=== PATIENT | male | born 1965 ===

== ENCOUNTER 2024-11-24 14:36 | Inpatient (IN) | payer MEDICARE, OTHER ==
[~2024-11-24] VITALS: Ht 167.6 cm; Wt 68.0 kg
[2024-11-24 15:30] LABS: PLATELET COUNT (AUTO) 272 K/uL (152-348); RED BLOOD CELL COUNT(AUTO) 4.18 MIL/uL (4.06-5.63); RED CELL DISTRIBUTION WIDTH 14.7 % (12.1-16.2); WHITE BLOOD COUNT (AUTO) 5.0 K/uL (3.6-10.2)
[2024-11-24 15:41] LABS: CREATININE 0.5 mg/dL (0.6-1.3); SODIUM SERUM 127 mmol/L (136-145); UREA NITROGEN, BLOOD 6 mg/dL (7-18)
[2024-11-24 15:43] LABS: ETHANOL < 3 MG/DL (0-10)
[2024-11-24 15:47] LABS: ASPARTATE AMINOTRANSFERASE 28 U/L (15-37); TOTAL PROTEIN, SERUM 7.2 g/dL (6.4-8.2)
[2024-11-24] MEDS ORDERED: CLON0.1T PO (16:54)
[2024-11-24] MEDS ORDERED: DIVA-78 PO (16:54)
[2024-11-24] MEDS ORDERED: SODI100010 PO (16:54)
[2024-11-24] MEDS ORDERED: MAG HYDROX/AL HYDROX/SIMETH 30 ML LIQUID UDC PO PRN (18:45)
[2024-11-24] MEDS ORDERED: QUETIAPINE FUMARATE 25 MG TABLET PO PRN ×2 (18:45→19:15)
[2024-11-24] MEDS ORDERED: QUETIAPINE FUMARATE 25 MG TABLET PO ONE (18:45)
[2024-11-24] MEDS ORDERED: MAGNESIUM HYDROXIDE 30 ML LIQUID UDC PO PRN (18:45)
[2024-11-24] MEDS ORDERED: ZOLPIDEM 5 MG TABLET PO PRN ×2 (18:45)
[2024-11-24] MEDS: BLOOD SUGAR DIAGNOSTIC 1 EACH STRIP VI ONE (19:33)
[2024-11-24] MEDS: QUETIAPINE FUMARATE 25 MG TABLET PO PRN (20:36)
[2024-11-24] MEDS: ACETAMINOPHEN 325 MG TABLET PO PRN (20:36)
[2024-11-24] MEDS: SODIUM CHLORIDE 1,000 MG TABLET PO SCH (21:15)
[2024-11-25] MEDS ORDERED: HALOPERIDOL 0.5 MG TABLET PO PRN (09:15)
[2024-11-25] MEDS ORDERED: TEMAZEPAM 7.5 MG CAPSULE PO PRN (09:15)
[2024-11-25] MEDS: HALOPERIDOL 2 MG TABLET PO PRN (11:05)
[2024-11-25] MEDS: HALOPERIDOL 2 MG TABLET PO SCH (13:18)
[2024-11-25] MEDS: DIVALPROEX 250 MG TABLET.DR PO SCH (13:18)
[2024-11-26 07:30] VITALS: BP 112/78; TEMP 98; O2SAT 99
[2024-11-26] MEDS: OLANZAPINE 10 MG VIAL IM ONE (10:49)
[2024-11-26] MEDS ORDERED: HALOPERIDOL 2 MG TABLET PO SCH (14:00)
[2024-11-26] MEDS: HALOPERIDOL 5 MG TABLET PO SCH (14:23)
[2024-11-28] MEDS: LORAZEPAM 1 MG TABLET PO ONE (13:15)
[2024-11-28] MEDS: HALOPERIDOL LACTATE 5 MG/1 ML VIAL IM ONE (13:21)
[2024-11-28] MEDS ORDERED: HALOPERIDOL LACTATE 5 MG/1 ML VIAL IM ONE (13:30)
[2024-11-28] MEDS: METOPROLOL TARTRATE 25 MG TABLET PO SCH (21:00)
[2024-11-29] MEDS: OLANZAPINE 10 MG VIAL IM STA (08:08)
[2024-11-29] MEDS: HALOPERIDOL 5 MG TABLET PO SCH (14:21)
[2024-11-30] MEDS: OLANZAPINE 10 MG VIAL IM STA (09:01)
[2024-11-30] MEDS: diphenhydrAMINE 50 MG/1 ML VIAL IM STA (09:01)
[2024-11-30] MEDS: HALOPERIDOL LACTATE 5 MG/1 ML VIAL IM ONE (20:45)
[2024-11-30] MEDS: diphenhydrAMINE 50 MG/1 ML VIAL IV ONE (20:46)
[2024-12-01 08:39] LABS: CREATININE 0.6 mg/dL (0.6-1.3); SODIUM SERUM 132 mmol/L (136-145); UREA NITROGEN, BLOOD 14 mg/dL (7-18)
[2024-12-01] MEDS: HALOPERIDOL DECANOATE 50 MG/1 ML AMPUL IM ONE (12:04)
[2024-12-01 16:57] VITALS: BP 106/68; TEMP 97; O2SAT 97
[2024-12-01 20:00] VITALS: BP 109/60; TEMP 98.1; O2SAT 99
[2024-12-02] MEDS: LORAZEPAM 2 MG/1 ML VIAL IM ONE ×2 (14:11→14:56)
[2024-12-02] MEDS: HALOPERIDOL LACTATE 5 MG/1 ML VIAL IM ONE (14:12)
[2024-12-03 08:20] VITALS: BP 116/67; TEMP 97.6; O2SAT 97
[2024-12-03] MEDS ORDERED: DIVALPROEX 250 MG TABLET.DR PO SCH (14:00)
[2024-12-03] MEDS: DIVALPROEX 500 MG TABLET.DR PO SCH (14:08)
[2024-12-03 17:37] VITALS: BP_SYST 122; BP_SYST 129; BP_DIAS 64; BP_DIAS 72; TEMP 97.4; TEMP 97.6; O2SAT 98
[2024-12-04 08:09] VITALS: BP 87/40; TEMP 98; O2SAT 100
[2024-12-04 08:25] LABS: CREATININE 0.6 mg/dL (0.6-1.3); SODIUM SERUM 138 mmol/L (136-145); UREA NITROGEN, BLOOD 12 mg/dL (7-18); VALPROIC ACID 49 ug/mL (50-100)
[2024-12-04 16:27] VITALS: BP 121/75; TEMP 97.5; O2SAT 97
[2024-12-04] MEDS: diphenhydrAMINE 50 MG/1 ML VIAL IM STA (17:24)
[2024-12-04] MEDS: HALOPERIDOL LACTATE 5 MG/1 ML VIAL IM STA (17:24)
[2024-12-05] MEDS: HALOPERIDOL LACTATE 5 MG/1 ML VIAL IM STA (14:22)
[2024-12-05] MEDS: diphenhydrAMINE 50 MG/1 ML VIAL IM STA (14:22)
[2024-12-06 08:30] VITALS: BP 90/51; TEMP 97.8; O2SAT 97
[2024-12-06] MEDS: diphenhydrAMINE 50 MG/1 ML VIAL IM STA (11:43)
[2024-12-06] MEDS: HALOPERIDOL LACTATE 5 MG/1 ML VIAL IM STA (11:43)
[2024-12-06] MEDS: CLONAZEPAM 0.5 MG TABLET PO SCH (13:32)
[2024-12-07] MEDS ORDERED: LITHIUM CARBONATE 300 MG CAPSULE PO SCH (12:45)
[2024-12-07] MEDS: LITHIUM CARBONATE 150 MG CAPSULE PO SCH (14:06)
[2024-12-08 09:01] VITALS: BP 146/72; TEMP 97.4; O2SAT 97
[2024-12-08 18:39] VITALS: BP 155/79; TEMP 97.6; O2SAT 97
[2024-12-08 20:00] VITALS: BP 134/85; TEMP 98.1; O2SAT 96
[2024-12-09] MEDS: diphenhydrAMINE 50 MG/1 ML VIAL IM ONE (15:09)
[2024-12-09] MEDS: HALOPERIDOL LACTATE 5 MG/1 ML VIAL IM ONE (15:09)
[2024-12-09 15:38] VITALS: BP 106/62; TEMP 98; O2SAT 98
[2024-12-10 12:20] VITALS: BP 127/72; TEMP 98.6; O2SAT 93
== END 2024-12-10 13:35 | DRG 885 ==
LOC: ER 14:36 → GPS 15:22 → UNDOADMIN 15:22
PROVIDERS: ADMIT Psychiatry & Neurology Psychiatry; ATTEND Internal Medicine
DX: F20.0 Paranoid schizophrenia (principal); E87.1 Hypo-osmolality and hyponatremia; E22.2 Syndrome of inappropriate secretion of antidiuretic hormone; F17.210 Nicotine dependence, cigarettes, uncomplicated; J44.9 Chronic obstructive pulmonary disease, unspecified; G40.909 Epilepsy, unspecified, not intractable, without status epilepticus; S09.90XS Unspecified injury of head, sequela; X58.XXXS Exposure to other specified factors, sequela; R26.81 Unsteadiness on feet; I10 Essential (primary) hypertension; G31.84 Mild cognitive impairment of uncertain or unknown etiology; T43.95XA Adverse effect of unspecified psychotropic drug, initial encounter; Y92.129 Unspecified place in nursing home as the place of occurrence of the external cause; Z79.899 Other long term (current) drug therapy; Z91.119 Patient's noncompliance with dietary regimen due to unspecified reason; Z91.148 Patient's other noncompliance with medication regimen for other reason; Z91.81 History of falling; F41.9 Anxiety disorder, unspecified
CPT/HCPCS: 36415; 70450; 71045; 80164; 83735; 84100; 84443; 84484; 84550; 85025; 85730; G0480; J1200; J1630; J1631; J2060; J2358; J3490